=== PATIENT | male | born 1955 | race Caucasian/White ===

== ENCOUNTER 2018-08-08 06:28 | Day surgery (SDC) | payer OTHER ==
[~2018-08-08] VITALS: Ht 180.3 cm; Wt 68.9 kg
[~2018-08-08 06:28] MED LIST: SODIUM CHLORIDE 0.9% 1000ML 1,000 ML IV ONE
[2018-08-08 08:41] VITALS: BP 113/67
[2018-08-08] MEDS ORDERED: FLUO20CA30 PO (09:04)
[2018-08-08] MEDS ORDERED: CYAN100T PO (09:04)
[2018-08-08] MEDS ORDERED: LOSA50TA64 PO (09:04)
[2018-08-08] MEDS ORDERED: DILT120C12 PO (09:04)
[2018-08-08] MEDS ORDERED: CARV6.25 PO (09:04)
[2018-08-08] MEDS ORDERED: TRAZ150T79 PO (09:04)
[2018-08-08] MEDS ORDERED: BUSP10TA3 PO (09:04)
[2018-08-08] MEDS ORDERED: BUPR300T54 PO (09:04)
[2018-08-08] MEDS ORDERED: DONE5TAB33 PO (09:04)
[2018-08-08] MEDS ORDERED: TERB30CR22 TP (09:04)
[2018-08-08] MEDS ORDERED: PROPOFOL 10 MG/ML 20ML VIAL IV ONE (09:54)
[2018-08-08 10:08] VITALS: BP 126/75
[2018-08-08 10:13] VITALS: BP 134/72
[2018-08-08 10:18] VITALS: BP 136/72
--- NOTE | 2018-08-08 10:21 | NUR ---
DC PT DC HOME VIA WC, NO DISTRESS NOTED. ACCOMPANIED BY MANDI . PT DENIED ANY PAIN OR DISCOMFORTS.
== END 2018-08-08 10:21 | disposition home or self-care (01) ==
LOC: DAH 06:28 → ENDO 06:28
PROVIDERS: ATTEND Internal Medicine
DX: D12.8 Benign neoplasm of rectum (principal); D12.3 Benign neoplasm of transverse colon; D12.4 Benign neoplasm of descending colon; Z68.30 Body mass index [BMI] 30.0-30.9, adult; Z86.010 Personal history of colon polyps; I42.9 Cardiomyopathy, unspecified; F41.9 Anxiety disorder, unspecified; F32.9 Major depressive disorder, single episode, unspecified; I11.0 Hypertensive heart disease with heart failure; Z79.899 Other long term (current) drug therapy; Z79.01 Long term (current) use of anticoagulants; Z95.0 Presence of cardiac pacemaker; I25.10 Atherosclerotic heart disease of native coronary artery without angina pectoris; I50.20 Unspecified systolic (congestive) heart failure; Z88.8 Allergy status to other drugs, medicaments and biological substances
CPT/HCPCS: 45380; 45385; 88305; 93005; A4606; J2704; J7030